=== PATIENT | female | born 1960 | race Caucasian/White ===

== ENCOUNTER 2018-07-31 16:30 | Outpatient (CLI) | payer BC ==
--- NOTE | 2018-07-31 18:28 | RAD ---
FRONTAL AND LATERAL IMAGING THORACIC SPINE 07/31/18 COMPARISON: None. HISTORY: Thoracic spine pain. FINDINGS: Thoracic vertebral body height and alignment appears within normal limits on the lateral view. Thorac ic pedicles appear intact on the frontal exam. IMPRESSION: No acute findings. POS: [facility]
== END 2018-07-31 16:31 | disposition home or self-care (01) ==
LOC: BICRAD 16:30
PROVIDERS: ATTEND Chiropractor
DX: M54.6 Pain in thoracic spine (principal)
CPT/HCPCS: 72072